=== PATIENT | male | born 1965 | race Caucasian/White ===

== ENCOUNTER 2025-01-25 17:12 | Emergency (ER) | payer OTHER, SELFPAY ==
[2025-01-25 17:15] VITALS: BP 151/93
--- NOTE | 2025-01-25 17:39 | ED.GENMED ---
History of Present Illness
<Marleny Yeh MD, Resident - Last Filed: 01/25/25 21:41>
General
Chief Complaint: Musculo-Skeletal Complaint
Source: patient
Exam Limitations: none
Time Seen by Provider: 01/25/25 17:28
Nursing documentation reviewed up to this point in time: agreed with
History of Present Illness
History of Present Illness:
59yo M with no significant pmh who presents following a fall.
The pt was on a hay wagon switching between wagons when he fell ~4ft, landing with his L thigh onto a railing, then falling to the ground onto his R shoulder/wrist/face. Denies any LOC or hitting his head hard (most impact on his R arm). Denies any
headache or vision changes. Denies any trauma to the abdomen. Able to ambulate, although with a limp due to pain in the L thigh. States that he cannot lift his R arm due to pain. Has pain in his R wrist. Feels that his nose is broken and saw blood
when he blew his nose.
Past History
<Marleny Yeh MD, Resident - Last Filed: 01/25/25 21:41>
Past History
ED Past Medical History: None
Review of Systems
<Marleny Yeh MD, Resident - Last Filed: 01/25/25 21:41>
Review of Systems
All Other Systems: ROS reviewed and negative except as documented in HPI and ROS
Constitutional: Reports no symptoms
EENT: Reports no symptoms
Respiratory: Reports no symptoms
Cardiac: Reports no symptoms
ABD/GI: Reports no symptoms
: Reports no symptoms
Musculoskeletal: Reports joint pain and muscle pain
Skin: Reports other (abrasions )
Neurological: Reports no symptoms
Psychiatric: Reports no symptoms
Phy Exam
<Marleny Yeh MD, Resident - Last Filed: 01/25/25 21:41>
General Physical Exam
General Presentation: mild distress
General age: appears stated age
General Skin: warm, dry and other (shallow abrasion over L lateral thigh; erythema & swelling with shallow abrasion over bridge of nose )
General Habitus: normal
General Mental: alert
ENT Exam
ENT Exam: EOMI
Additional ENT: nose with edema/erythema, dried blood in nares // no broken teeth
Eye Exam
Eye Exam: PERRL, EOMI and other (no tenderness to palpation over orbital/facial bones (aside from nasal bridge) )
Cardiovascular Exam
Cardiovascular Exam: regular rate/rhythm and no edema
Pulmonary Exam
Pulmonary Exam: no respiratory distress
Gastrointestinal Exam
Gastrointestinal Exam: non distended
Neurological Exam
Neurological Exam: alert and oriented x3
Musculoskeletal Exam
Musculoskeletal Exam: other (active/passive ROM R shoulder limited by pain, abduction to ~20 degrees; pain with passive int/ext rotation of R shoulder; no swelling of R shoulder; ttp anterior R shoulder; pain with passive flexion of R wrist, but no
ttp or swelling/erythema; L thigh ttp, no hematoma, L knee & hip ROM intact)
Skin Exam
Skin Exam: normal color and other (abrasions as above )
Psychiatric Exam
Psychiatric Exam: normal mood/affect
Course
<Marleny Yeh MD, Resident - Last Filed: 01/25/25 21:41>
Orders/Labs/Results
Orders:
Orders
01/25/25 17:49
CR Wrist - Right Min 3 Views Stat
Reason For Exam: trauma
Shoulder, Right 2 Views [CR Shoulder - Right Min 2 View] Stat
Comment:
Reason For Exam: trauma
01/25/25 17:52
Femur, Left 2 View [CR Femur - Left Min 2 Vw] Urgent
Comment:
Reason For Exam: fall, pain
01/25/25 18:22
CT Facial Bones W/o Iv Contras Urgent
Comment:
Reason For Exam: nasal pain, fall
01/25/25 19:52
Splints/Slings/Crut- Treatment ONCE
Crutches: No
Location: Right
Type of Splint: Volar
Comment: for R wrist mildly distracted dorsal triquetral fracture. No dislocation.
01/25/25 19:59
Sling Right-Treatment ONCE
Comment: R shoulder
Vital Signs
Initial and Last Documented VS:
Initial Vital Signs
Temp Pulse Resp BP Pulse Ox
98.0 F 110 20 151/93 96
01/25/25 17:15 01/25/25 17:15 01/25/25 17:15 01/25/25 17:15 01/25/25 17:15
Last Documented Vital Signs
Temp Pulse Resp BP Pulse Ox
98.0 F 89 18 156/95 95
01/25/25 17:15 01/25/25 20:23 01/25/25 20:23 01/25/25 20:23 01/25/25 20:23
<Marisela Parkinson DO - Last Filed: 01/25/25 20:12>
Orders/Labs/Results
Orders:
Orders
01/25/25 17:49
CR Wrist - Right Min 3 Views Stat
Reason For Exam: trauma
Shoulder, Right 2 Views [CR Shoulder - Right Min 2 View] Stat
Comment:
Reason For Exam: trauma
01/25/25 17:52
Femur, Left 2 View [CR Femur - Left Min 2 Vw] Urgent
Comment:
Reason For Exam: fall, pain
01/25/25 18:22
CT Facial Bones W/o Iv Contras Urgent
Comment:
Reason For Exam: nasal pain, fall
01/25/25 19:52
Splints/Slings/Crut- Treatment ONCE
Crutches: No
Location: Right
Type of Splint: Volar
Comment: for R wrist mildly distracted dorsal triquetral fracture. No dislocation.
01/25/25 19:59
Sling Right-Treatment ONCE
Comment: R shoulder
Vital Signs
Initial and Last Documented VS:
Initial Vital Signs
Temp Pulse Resp BP Pulse Ox
98.0 F 110 20 151/93 96
01/25/25 17:15 01/25/25 17:15 01/25/25 17:15 01/25/25 17:15 01/25/25 17:15
Last Documented Vital Signs
Temp Pulse Resp BP Pulse Ox
98.0 F 89 18 156/95 95
01/25/25 17:15 01/25/25 20:23 01/25/25 20:23 01/25/25 20:23 01/25/25 20:23
<Marleny Yeh MD, Resident - Last Filed: 01/25/25 21:41>
MDM/Problems Addressed
Differential Diagnosis Includes:
Ddx:
R rotator cuff partial tear vs. strain
R wrist tendon sprain/strain vs. fracture
L thigh soft tissue swelling (vs. fracture)
Nasal fracture (less likely orbital fracture, given no tenderness to palpation)
MDM/Problems Addressed:
- XR R shoulder & wrist
- XR L femur
- Consider CT head & face wo contrast
- Ortho referral for outpatient rotator cuff PT
<Marleny Yeh MD, Resident - Last Filed: 01/25/25 21:41>
*Pulse Oximetry
SaO2: 96
Oxygen Mode of Delivery: Room air
Patient hypoxic: no
*Critical Care Note
Total Time (30-74mins, 75-104mins- exclusive of procedures): Not Applicable
<Marleny Yeh MD, Resident - Last Filed: 01/25/25 21:41>
Update Note
Update Note:
7:05pm
R wrist XR: Mildly distracted dorsal triquetral fracture. No dislocation.
No acute fracture of R shoulder or L femur.
Will plan for volar splinting for R wrist.
7:50pm
Slightly depressed and comminuted nasal bone fracture.
ED Attending Note
<Marleny Yeh MD, Resident - Last Filed: 01/25/25 21:41>
-
Portions of this chart may have been created with voice recognition software.� Occasional wrong word or��sound alike� substitutions may have occurred due to the inherent limitations of voice recognition software.
<Marisela Parkinson DO - Last Filed: 01/25/25 20:12>
ED Attending Note
Patient seen and examined by attending physician: Yes
I performed the substantive portion of visit, reviewed & personally made and approve the management plan that is documented in note by myself or YARY.: Yes
I performed a history and physical exam of patient and discussed management with resident, I reviewed resident's note and agree with documented findings and plan of care.: Yes
ED Attending Note:
59-year-old male without significant past medical history presenting to the emergency department after fall. Patient reports that he was moving from a hay wagon. He initially fell onto his left thigh, and then subsequently onto his shoulder
injuring both his right shoulder and his right wrist. He also struck his face without loss of consciousness. Denies blood thinners. He arrives with pain to the left thigh, right shoulder, right wrist. Also notes some nasal bridge pain.
Initially had some epistaxis which has since resolved. Denies any prodromal symptoms such as lightheaded or dizziness prior to fall. Denies weakness or numbness to his extremities. Vital signs on arrival are significant for mild tachycardia which
has since resolved.
On exam, patient is resting comfortably, no acute distress. Patient does arrive with signs of facial trauma, abrasions and ecchymosis to the nasal bridge with tenderness. No nasal septal hematoma. GCS of 15. Otherwise head and scalp itself is
atraumatic, no midline cervical neck tenderness. No indication for advanced CT brain imaging. Suspicion for nasal bone fracture. Will obtain CT facial bones. Regarding musculoskeletal complaints, mild abrasion to the left thigh without obvious
deformity. Patient has been ambulating and range of motion with low suspicion for fracture. Suspect mild contusion. Generalized tenderness to the anterior aspect of right shoulder with abduction. Suspect rotator cuff injury. No deformity, no
neurovascular compromise. No focal tenderness to the wrist with range of motion intact. Plan for x-ray imaging of the wrist, shoulder, left femur. Patient declining any pain medication.
20:10 - Patient's x-rays of the shoulder and the thigh are negative, however there is a triquetral fracture to the right wrist. Placed in a volar splint. Will also provide a sling, however cautioned against immobility to prevent frozen shoulder
syndrome. CT of the face shows a nasal bone fracture. At this time feel stable for discharge with outpatient ENT and orthopedic follow-up. Return precautions discussed and patient verbalized understanding
Discharge Plan
Departure
Patient Disposition: Home (Routine Discharge)
Date of Disposition: 01/25/25
Time of Disposition: 20:09
Patient with high blood pressure during this ER visit?: No
Condition: Good
Covid-19: Not Applicable
Discharge Problem:
Fracture of triquetrum of right wrist, Closed fracture of nasal bone, Injury of right rotator cuff
Instructions: Wrist Fracture (DC), How to Use a Shoulder Sling, Splint Care
Referrals:
Luis Alberto Delatorre MD [Active, Orthopedics]
Nathan López DO [Family Provider, Family Practice]
Hua Yuan MD [Active, ENT]
Activity Restrictions/Additional Instructions:
You were seen in the ED after a fall. You were found to have a fracture of your R wrist ('mildly distracted dorsal triquetral fracture') and your nose ('Slightly depressed and comminuted nasal bone fracture'). You did not have any fracture of your
R shoulder or your L femur.
You were given a volar splint to immobilize your R wrist, which you should leave on until you follow up with orthopedics (Dr. Luis Alberto Delatorre). You were also given a sling to help with your R shoulder pain with movement. We have included instructions
for splints and slings in this discharge paperwork for you to review. You should also take an NSAID pain medication (ex: advil, motrin, aleve) for the next week, according to the instructions on the package, and you may apply ice to areas that are
red & swollen. We have provided information for an ENT physician (Dr. Yuan) who can see you for follow-up for your nasal fracture.
Return to the ED if you have worsening redness/swelling/warmth of any joint; fevers at home; or trouble breathing/obstructed airway.
Interventions
Interventions:
*Risk Screen - Suicide Last Done: 01/25/25 17:58
*General Assessment Last Done: 01/25/25 17:58
*Neglect/Abuse Screening Last Done: 01/25/25 17:58
*ED COVID-19 Vaccine History Last Done: 01/25/25 17:58
*ED Influenza Vaccine History Last Done: 01/25/25 17:58
*Nursing Disposition Last Done: 01/25/25 20:39
ED-Musculoskeletal Assessment Last Done: 01/25/25 18:03
Discharge Date and Time
Discharge Date/Time: 01/25/25 20:41
Print Language: TRISTANIAN
[2025-01-25 17:59] VITALS: BMI 26.4
[2025-01-25 18:03] VITALS: BP 155/86
[2025-01-25 20:23] VITALS: BP 156/95
== END 2025-01-25 20:41 | disposition home or self-care (01) ==
LOC: EMR 17:12
PROVIDERS: EMERGENCY PHYSICIAN Student in an Organized Health Care Education/Training Program; FAMILY PHYSICIAN Family Medicine
DX: S62.111A Displaced fracture of triquetrum [cuneiform] bone, right wrist, initial encounter for closed fracture (principal); S02.2XXA Fracture of nasal bones, initial encounter for closed fracture; S46.001A Unspecified injury of muscle(s) and tendon(s) of the rotator cuff of right shoulder, initial encounter; S70.312A Abrasion, left thigh, initial encounter; S00.31XA Abrasion of nose, initial encounter; W17.89XA Other fall from one level to another, initial encounter
CPT/HCPCS: 29125; 99284; 70486; 73030; 73110; 73552

== ENCOUNTER 2025-01-26 10:53 | Emergency (ER) | payer OTHER, SELFPAY ==
[2025-01-26 10:55] VITALS: BP 159/92
--- NOTE | 2025-01-26 11:27 | ED.GENMED ---
History of Present Illness
General
Chief Complaint: Wound Check/Suture Removal
Source: patient
Exam Limitations: none
Time Seen by Provider: 01/26/25 11:08
Nursing documentation reviewed up to this point in time: agreed with
History of Present Illness
History of Present Illness:
Patient is a 59-year-old male with history of hypertension, hyperlipidemia who presents to the emergency department for splint change. Patient was seen in the emergency department yesterday after suffering a fall. He was found to have a nasal
fracture as well as a dorsal triquetral fracture. He was placed in a volar splint however states that the fiberglass was sticking out throughout the night cutting his hand. He returns today for splint change.
He states that he was unable to sleep last night due to pain although did not take any Tylenol or Motrin, as he lost the instructions that were provided to him at discharge. He is not interested in narcotic medications.
Patient denies any numbness/tingling in right hand or fingers.
He has yet to contact the ENT or orthopedic for outpatient follow-up.
Past History
Past History
ED Past Medical History: None
Review of Systems
Review of Systems
Allergies reviewed?: Yes
All Other Systems: ROS reviewed and negative except as documented in HPI and ROS
Phy Exam
Physical Exam
Physical Exam:
Vitals: Hypertensive, otherwise vital signs stable. Afebrile
General: Patient is well appearing, no acute distress
Skin: Warm and dry, no rashes or lesions
Head: Normocephalic, atraumatic
Throat: Protecting airway
Neck: Normal ROM, no cervical spine tenderness
Cardiac: Regular rate
Pulm: No apparent respiratory distress
Abdomen: Nondistended
Extremities: Sling and volar splint in place on right upper extremity. 2+ palpable radial pulses, normal capillary refill
Neuro: Grossly intact
Psychiatric: Normal affect.
Course
Orders/Labs/Results
Orders:
Orders
12/07/25 11:25
Splints/Slings/Crut- Treatment ONCE
Location: Right
Type of Splint: Volar
Vital Signs
Initial and Last Documented VS:
Initial Vital Signs
Temp Pulse Resp BP Pulse Ox
98.4 F 82 18 159/92 97
01/26/25 10:55 01/26/25 10:55 01/26/25 10:55 01/26/25 10:55 01/26/25 10:55
Last Documented Vital Signs
Temp Pulse Resp BP Pulse Ox
98.4 F 82 18 159/92 97
01/26/25 10:55 01/26/25 10:55 01/26/25 10:55 01/26/25 10:55 01/26/25 11:28
Procedures
Splinting/Sling Placement
Right Wrist:
Procedure completed by: services tech
Pre-splint extermity exam: neurovascular intact
Type of splint: volar
Splint material: fiberglass
Splint checked by provider?: Yes
Type of sling: sling fitted
Normal distal neurovascular exam?: Yes
MDM/Problems Addressed
Differential Diagnosis Includes:
Not limited to: Wrist fracture, etc.
MDM/Problems Addressed:
59-year-old male presenting one day after fall with known right hand fracture for splint change. He states fiberglass is cutting his hand. No additional falls or trauma.
Vital stable. On exam, patient appears well and in no distress. There is a volar splint on his right wrist with some exposed fiberglass, irritating his right palm. Right upper extremity is neurovascularly intact.
Will place new splint.
Right volar splint replaced by services tech. I did evaluate patient following splint placement. No evidence of neurovascular compromise. There is no longer any exposed fiberglass.
Will send rx for a few tramadol as he states pain kept him awake all night.
Stable for discharge home with outpatient orthopedic, ENT follow-up as discussed yesterday. Very strict return precautions discussed. Patient comfortable with plan.
Chronic conditions affecting care:
Hypertension
Acute Exacerbation and/or Progression of Chronic Illness:
Acutely hypertensive
*Pulse Oximetry
SaO2: 97
Oxygen Mode of Delivery: Room air
Patient hypoxic: no
*EKG
Interpreted by ED Provider?: NA
*Surveyor Helper Interpretation
Rate: Surveyor Helper- N/A
*Critical Care Note
Total Time (30-74mins, 75-104mins- exclusive of procedures): Not Applicable
Data Reviewed
Review of Other/Old Records Reveals: Radiology Studies (X-ray of right wrist performed yesterday, 01/25/2025 which reveals a dorsal triquetral fracture) and Discharge Summary (I personally reviewed ED discharge summary from 01/25/2025)
ED Attending Note
-
Portions of this chart may have been created with voice recognition software.� Occasional wrong word or��sound alike� substitutions may have occurred due to the inherent limitations of voice recognition software.
Discharge Plan
Departure
Patient Disposition: Home (Routine Discharge)
Date of Disposition: 01/26/25
Time of Disposition: 11:50
Patient with high blood pressure during this ER visit?: Yes
Condition: Good
Discharge Problem:
Aftercare for cast or splint check or change
Instructions: Hand Fracture ED, Splint care - ED (DC), BLOOD PRESSURE
Prescriptions:
New
tramadol 50 mg tablet
50 mg PO HS PRN (Reason: Pain) Qty: 10 0RF
Referrals:
Luis Alberto Delatorre MD [Active, Orthopedics] - Next open appointment
Nathan López DO [Family Provider, Family Practice]
Hua Yuan MD [Active, ENT] - Next open appointment
Activity Restrictions/Additional Instructions:
RETURN TO THE EMERGENCY DEPARTMENT WITH ANY SEVERE SWELLING OR WORSENING PAIN IN RIGHT WRIST/HAND, NUMBNESS/TINGLING IN RIGHT FINGERS, ANY CHEST PAIN/SHORTNESS OF BREATH OR DIFFICULTY BREATHING, OR ANY OTHER CONCERNS
- Your splint was replaced today in the emergency department on your right wrist. Please keep splint on you were seen by orthopedics. Continue to wear shoulder sling however be sure to range your right shoulder frequently throughout the day to
prevent frozen shoulder syndrome.
- For pain management you can take Tylenol, 650 mg every 4-6 hours or 1000 mg every 6 hours as needed for pain. You should not exceed 3000 mg of acetaminophen in 24 hours you can alternate with NSAIDs (ibuprofen or naproxen) 400-600 mg every 6
hours as needed. You should not exceed 2400 milligrams in 24 hours
-Continue to ice and elevate your right wrist
- Please contact the ENT and orthopedic to schedule outpatient follow-up
Monitor your symptoms closely and return to the emergency department with any acute worsening/new symptoms or any other concerns
Interventions
Interventions:
*Risk Screen - Suicide Last Done: 01/26/25 10:58
*Neglect/Abuse Screening Last Done: 01/26/25 10:58
*ED COVID-19 Vaccine History Last Done: 01/26/25 10:58
*ED Influenza Vaccine History Last Done: 01/26/25 10:58
*Nursing Disposition Last Done: 01/26/25 12:12
ED-Skin Assessment Last Done: 01/26/25 11:25
Discharge Date and Time
Discharge Date/Time: 01/26/25 12:15
Print Language: ALBANIAN
== END 2025-01-26 12:15 | disposition home or self-care (01) ==
LOC: EMR 10:53
PROVIDERS: EMERGENCY PHYSICIAN Emergency Medicine; FAMILY PHYSICIAN Family Medicine
DX: Z46.89 Encounter for fitting and adjustment of other specified devices (principal); E78.5 Hyperlipidemia, unspecified; I10 Essential (primary) hypertension
CPT/HCPCS: 99282